=== PATIENT | male | born 1995 ===

== ENCOUNTER 2018-09-16 16:15 | Emergency (ER) | payer SELFPAY ==
[2018-09-16 16:19] VITALS: BMI 35.0
[2018-09-16 16:23] VITALS: RESP 18
--- NOTE | 2018-09-16 16:49 | ED PDOC ---
Arrival/HPI - General Historian: Patient - History of Present Illness Narrative History of Present Illness (Text): 09/16/18 18:00 23yr old male presents today with right ear pain since last night. pt states that he developed slight ear pain in the right ear last night that has gradually worsened throughout the day. He states he took Motrin in the morning without improvement. He is complaining of decreased hearing in the right ear. He is complaining of nasal congestion. No chest pain or shortness of breath. He denies headaches dizziness or weakness. No sore throat. Patient denies fevers or chills. <Zara Guillaume - Last Filed: 09/16/18 17:54> <Jr Torres - Last Filed: 09/16/18 18:45> - General Chief Complaint: ENT Problem Time Seen by Provider: 09/16/18 16:17 Past Medical History - Provider Review Nursing Documentation Reviewed: Yes - Travel History Have you recently traveled outside [place] w/in the past 3 mons?: No - Infectious Disease Hx of Infectious Diseases: None - Psychiatric Hx Substance Use: No - Surgical History Other/Comment: ears surgery as a child - Anesthesia Hx Anesthesia Reactions: No Hx Malignant Hyperthermia: No <Zara Guillaume - Last Filed: 09/16/18 17:54> Family/Social History - Physician Review Nursing Documentation Reviewed: Yes Family/Social History: Unknown Family HX Smoking Status: Current Some Days Smoker Hx Alcohol Use: No Hx Substance Use: No <Zraa Guillaume - Last Filed: 09/16/18 17:54> Allergies/Home Meds <Zara Guillaume - Last Filed: 09/16/18 17:54> <rJ Torres - Last Filed: 09/16/18 18:45> Allergies/Adverse Reactions: Allergies No Known Allergies Allergy (Verified 09/16/18 16:21) Review of Systems - Review of Systems Constitutional: absent: Fatigue, Fevers ENT: Other (right ear pain) Respiratory: absent: SOB, Cough Cardiovascular: absent: Chest Pain, Palpitations Gastrointestinal: absent: Abdominal Pain, Nausea, Vomiting Musculoskeletal: absent: Arthralgias, Back Pain, Neck Pain Skin: absent: Rash, Pruritis Psychiatric: absent: Anxiety, Depression <Zara Guillaume - Last Filed: 09/16/18 17:54> Physical Exam Vital Signs Reviewed: Yes Vital Signs Temp Pulse Resp BP Pulse Ox 09/16/18 16:16 98.7 F 76 18 129/71 97 Temperature: Afebrile Blood Pressure: Normal Pulse: Regular Respiratory Rate: Normal Appearance: Positive for: Well-Appearing, Non-Toxic, Comfortable Pain Distress: None Mental Status: Positive for: Alert and Oriented X 3 - Systems Exam Head: Present: Atraumatic Conjunctiva: Present: Normal Ears: Present: Normal Canal, Other (no mastoid tenderness. no pinna pull or tragal tug. ). No: NORMAL TM (right TM bulging with purulent white discharge. ) Mouth: Present: Moist Mucous Membranes. No: Drooling, Trismus Pharnyx: Present: Normal. No: ERYTHEMA, EXUDATE, TONSILS ENLARGED, Peritonsilar Swelling, Uvular Deviation, Muffled/Hoarse Voice Nose (External): Present: Atraumatic Nose (Internal): Present: Normal Inspection Neck: Present: Normal Range of Motion, Trachea Midline. No: Lymphadenopathy Respiratory/Chest: Present: Clear to Auscultation, Good Air Exchange. No: Respiratory Distress, Accessory Muscle Use Cardiovascular: Present: Regular Rate and Rhythm, Normal S1, S2. No: Murmurs <Zara Guillaume - Last Filed: 09/16/18 17:54> Vital Signs Temp Pulse Resp BP Pulse Ox 09/16/18 16:16 98.7 F 76 18 129/71 97 <Jr Torres - Last Filed: 09/16/18 18:45> Medical Decision Making ED Course and Treatment: 09/16/18 17:55 Patient with right ear pain since last night. vitals stable. Patient given Toradol and amoxicillin. pt seen and evaluated by dr. Torres; pt was advised to follow-up with the ENT specialist within the next 2 days and return immediately if symptoms worsen persist or if new concerning symptoms develop Patient verbalizes understanding of discharge instructions and need for immediate followup. all aspects of this case were discussed the attending of record. Impression: Otitis media Motrin every 6 hours as needed for pain/fever reduction Increase fluids Amoxicilllin 3 times daily x days Follow up with the ENT specialist within the next 2 days. Follow up primary care physician within the next 2 days Return if symptoms worsen persist or if the symptoms develop Reassessment Condition: Re-examined, Improved <Zara Guillaume Kevin - Last Filed: 09/16/18 17:54> - Medication Orders Current Medication Orders: Discontinued Medications Amoxicillin (Amoxil 500 Mg Cap) 500 mg PO STAT STA; Protocol Stop: 09/16/18 16:47 Ketorolac Tromethamine (Toradol) 60 mg IM STAT STA Stop: 09/16/18 16:47 <rJ Torres - Last Filed: 09/16/18 18:45> - PA / DICTAPHONE TYPIST / Resident Statement ULYSSES has examined the patient and agrees with the treatment plan. <Jr Torres - Last Filed: 09/16/18 18:45> Disposition/Present on Arrival - Present on Arrival Any Indicators Present on Arrival: No History of DVT/PE: No History of Uncontrolled Diabetes: No Urinary Catheter: No History of Decub. Ulcer: No History Surgical Site Infection Following: None - Disposition Have Diagnosis and Disposition been Completed?: Yes Disposition Time: 16:47 Patient Plan: Discharge <CorijoannaZara T - Last Filed: 09/16/18 17:54> <Jr Torres - Last Filed: 09/16/18 18:45> - Disposition Diagnosis: Otitis media Disposition: HOME/ ROUTINE Condition: GOOD Discharge Instructions (ExitCare): Ear Infections (Otitis Media) (DC) Additional Instructions: Motrin every 6 hours as needed for pain/fever reduction Increase fluids Amoxicilllin 3 times daily x days Follow up with the ENT specialist within the next 2 days. Follow up primary care physician within the next 2 days Return if symptoms worsen persist or if the symptoms develop Prescriptions: RX: Amoxicillin 500 mg PO TID #30 tab Ibuprofen [Motrin] 600 mg PO Q6H PRN #20 tab PRN Reason: pain/fever reduction Referrals: Morelia Melo MD [Medical Doctor] - Follow up with primary Binh Ramey DO [Doctor Osteopathy] - Follow up with primary [facility] [Outside] - Follow up with primary Forms: [employer] (Frisian), WORK NOTE
[2018-09-16 18:14] VITALS: BP 125/69; PULSE 79; TEMP 98.6; O2SAT 100
== END 2018-09-16 18:13 | disposition home or self-care (01) ==
LOC: ED 16:15
DX: H66.91 Otitis media, unspecified, right ear (principal)
CPT/HCPCS: 96372; 99283; J1885